=== PATIENT | male | born 1960 | race Caucasian/White ===

== ENCOUNTER 2019-05-31 11:34 | Day surgery (SDC) | payer OTHER ==
[~2019-05-31 11:34] MED LIST: Lactated Ringers 1,000 ML IV SCH; Sodium Chloride 0.9% 10 ML SDV IV PRN; Sodium Chloride 0.9% 10 ML Syringe FLUSH PRN; Sodium Chloride 0.9% 2.5 ML Syringe FLUSH PRN; ceFAZolin 1 GM in Premix Bag 1 BAG IV ONE
--- NOTE | 2019-05-31 12:48 | PCM.PREANE ---
Preanesthetic Assessment - Anesthesia/Transfusion/Family Hx Anesthesia History: Prior Anesthesia Without Reaction Family History of Anesthesia Reaction: No Transfusion History: No Prior Transfusion(s) Intubation History: Unknown - Review of Systems General: No Symptoms Pulmonary: No Symptoms Cardiovascular: No Symptoms Gastrointestinal: No Symptoms Neurological: No Symptoms Other: Reports: None - Physical Assessment Height: 6 ft Weight: 90.718 kg ASA Class: 2 Mental Status: Alert & Oriented x3 Airway Class: Mallampati = 2 Dentition: Reports: Dentures (upper and lower) Thyro-Mental Finger Breadths: 3 Mouth Opening Finger Breadths: 3 ROM/Head Extension: Full Lungs: Clear to Auscultation, Normal Respiratory Effort Cardiovascular: Regular Rate, Regular Rhythm - Allergies Allergies/Adverse Reactions: Allergies Allergy/AdvReac Type Severity Reaction Status Date / Time No Known Allergies Allergy Verified 05/24/19 12:19 - Blood Blood Available: No - Anesthesia Plan Pre-Op Medication Ordered: None - Acknowledgements Anesthesia Type Planned: General Anesthesia Pt an Appropriate Candidate for the Planned Anesthesia: Yes Alternatives and Risks of Anesthesia Discussed w Pt/Guardian: Yes Pt/Guardian Understands and Agrees with Anesthesia Plan: Yes PreAnesthesia Questionnaire HEENT History: Reports: Other (See Below) Other HEENT History: wears glasses, has upper and lower dentures Gastrointestinal History: Reports: None Genitourinary History: Reports: Other (See Below) Other Genitourinary History: 1.8 cm current bladder tumor discovered by CT scan (hematuria as symptom) Oncologic (Cancer) History: Reports: Bladder - Past Surgical History GI Surgical History: Reports: Appendectomy - SUBSTANCE USE Smoking Status *Q: Current Every Day Smoker (1 1/2-2 ppd, starting chantix in order to quit smoking) Tobacco Use Within Last Twelve Months: Cigarettes Recreational Drug Use History: No - HOME MEDS Home Medications: Home Meds . [No Known Home Meds] 05/24/19 [History] - CURRENT (IN HOUSE) MEDS Current Meds: Current Medications Lactated Ringer's (Ringers, Lactated) 1,000 mls @ 100 mls/hr IV ASDIRECTED ASHLEY Sodium Chloride (Saline Flush) 10 ml FLUSH ASDIRECTED PRN PRN Reason: Keep Vein Open Sodium Chloride (Saline Flush) 2.5 ml FLUSH ASDIRECTED PRN PRN Reason: Keep Vein Open Sodium Chloride (Normal Saline) 10 ml IV ASDIRECTED PRN PRN Reason: IV Use Discontinued Medications Cefazolin Sodium/Dextrose 1 gm (/ Premix) 50 mls @ 100 mls/hr IV ONCALL ONE Stop: 05/31/19 00:30
[2019-05-31] MEDS ORDERED: Propofol 200 MG/20 ML SDV ONE (15:30)
[2019-05-31] MEDS ORDERED: fentaNYL 100 MCG/2 ML SDV ONE (15:30)
[2019-05-31] MEDS ORDERED: Ketorolac 30 MG/ML SDV ONE (15:31)
[2019-05-31] MEDS ORDERED: Glycopyrrolate 0.2 MG/ML SDV ONE (15:31)
[2019-05-31] MEDS ORDERED: Ondansetron 4 MG/2 ML SDV ONE (15:31)
[2019-05-31] MEDS ORDERED: Lidocaine 2% 5 ML SDV ONE (15:31)
[2019-05-31] MEDS ORDERED: Sodium Chloride 0.9% 20 ML ONE (15:38)
[2019-05-31] MEDS ORDERED: ceFAZolin 1 GM Vial ONE (15:38)
[2019-05-31] MEDS ORDERED: ePHEDrine 50 MG/ML SDV ONE (15:50)
--- NOTE | 2019-05-31 17:20 | PCM48HPAN ---
Post Anesthesia Note - EVALUATION WITHIN 48HRS OF ANESTHETIC Vital Signs in Normal Range: Yes Patient Participated in Evaluation: Yes Respiratory Function Stable: Yes Airway Patent: Yes Cardiovascular Function Stable: Yes Hydration Status Stable: Yes Pain Control Satisfactory: Yes Nausea and Vomiting Control Satisfactory: Yes Mental Status Recovered: Yes Resp Rate: 12 - COMMENTS/OBSERVATIONS Free Text/Narrative:: no anesthesia problems
--- NOTE | 2019-05-31 18:04 | OR ---
SURGEON: Dilma Sen M.D. DATE OF PROCEDURE: 05/31/2019 PREOPERATIVE DIAGNOSIS: Bladder tumor, 2 cm. POSTOPERATIVE DIAGNOSIS: Bladder tumor, 2 cm. OPERATION: Transurethral resection of bladder tumor. DESCRIPTION OF PROCEDURE: The bladder tumor which was on the posterior wall of the bladder was resected. The 26-[place] continuous flow resectoscope was introduced in the bladder without difficulty. The tumor was resected in its entirety. The base of the tumor was submitted separately. Because of the depth of the resection, a 16-[place] catheter was left in and will be left in and removed in my office day after tomorrow. The patient tolerated the procedure well, was moved to recovery room in good condition. YADY / [id number] /[id number]
== END 2019-05-31 18:10 | disposition home or self-care (01) ==
LOC: MW.SDS 11:34
PROVIDERS: ATTEND Urology
DX: C67.4 Malignant neoplasm of posterior wall of bladder (principal); F17.210 Nicotine dependence, cigarettes, uncomplicated
CPT/HCPCS: 52234; 88305; J0690; J2001; J2405; J2704; J3010; J3490; J7120; J1885